=== PATIENT | male | born 1965 | race African-American/Black ===

== ENCOUNTER 2016-12-13 17:03 | Emergency (ER) | payer SELFPAY ==
[~2016-12-13] VITALS: Ht 175.3 cm; Wt 68.0 kg
[2016-12-13 17:03] VITALS: BP 166/98; PULSE 83; RESP 18; TEMP 98.7; O2SAT 100
[2016-12-13] MEDS ORDERED: PROPARACAINE HCL 0.5% OPHT SOLN 15 ML BTL RIGHT EYE ONE (17:15)
[2016-12-13] MEDS ORDERED: ERYTOIN10 RIGHT EYE (17:34)
[2016-12-13] MEDS ORDERED: IBUP800T23 PO (17:34)
--- NOTE | 2016-12-13 17:36 | PD ---
HPI Chief Complaint: Eye Problems/Injury Time Seen by Provider: 17:32 Travel History International Travel<30 days: No Contact w/Intl Traveler<30days: No Traveled to known affect area: No History of Present Illness HPI 51-year-old male presents emergency Department with complaint of right eye pain after something flew into his eye while doing yard work yesterday. Reports clear drainage. Reports blurry vision and photophobia. Denies fever, vomiting. Has been taking Tylenol for symptom management. Wearing sunglasses for symptom management. Has no other medical complaints. No known allergies. Symptoms are moderate in severity. No other modifying factors or associated signs and symptoms. PFSH Past Medical History Cerebrovascular Accident: No Diabetes: No Headaches: Yes Myocardial Infarction: No Social History Alcohol Use: No Tobacco Use: Yes (/2 PPD) Substance Use: No Allergies-Medications (Allergen,Severity, Reaction): Coded Allergies: No Known Allergies (Verified , 12/13/16) Reported Meds & Prescriptions Reported Meds & Active Scripts Active Erythromycin Opth Oint 5 Mg/Gm Oint 1 Applic RIGHT EYE QID 7 Days Ibuprofen 800 Mg Tab 800 Mg PO Q6HR PRN Review of Systems Except as stated in HPI: all other systems reviewed are Neg Physical Exam Narrative GENERAL: Well-nourished, well-developed black male patient, in no acute distress SKIN: Warm and dry. HEAD: Atraumatic. Normocephalic. EYES: Pupils equal and round at 3 mm with brisk reaction. PERRLA. EOMI. visual acuity 20/25 bilateral. Right lid eversion with no foreign body noted. Right eye with scleral erythema and without lid edema. No orbital tenderness, erythema or cellulitis. Right eye with photophobia. No consensual photophobia. No scleral icterus. Clear drainage. Anderson lamp exam reveals corneal abrasion at the 12 o'clock position above the iris. ENT: Mucosa pink and moist. Airway patent. NECK: Trachea midline. CARDIOVASCULAR: Regular rate. RESPIRATORY: No accessory muscle use. GASTROINTESTINAL: Flat. NEUROLOGICAL: Awake and alert. Oriented 3. No obvious cranial nerve deficits. Motor grossly within normal limits. Normal speech. PSYCHIATRIC: Appropriate mood and affect; insight and judgment normal. Data Data Last Documented VS Vital Signs Date Time Temp Pulse Resp B/P (MAP) Pulse Ox O2 Delivery O2 Flow Rate FiO2 12/13/16 17:39 10/4/17 17:03 98.7 83 18 100 Room Air Orders Orders Proparacaine 0.5% Opth Soln (Alcaine 0.5 (12/13/16 17:15) MDM Medical Decision Making Medical Screen Exam Complete: Yes Emergency Medical Condition: Yes Medical Record Reviewed: Yes Differential Diagnosis Eye contusion, corneal abrasion, corneal ulceration Narrative Course 51-year-old male physical exam consistent with a corneal abrasion of the right eye. Erythromycin and ibuprofen prescribed for home. Patient to follow up with ophthalmology in one to 2 days. Instructed patient to follow up with primary care provider. Patient verbalizes understanding and agreement with treatment plan. Patient is medically cleared and stable for discharge. Discussed reasons to return to the emergency department. Patient agrees with treatment plan. The patients vital signs are stable and the patient is stable for outpatient follow-up and treatment. Patient discharged home, stable and in no acute distress. Diagnosis Primary Impression: Corneal abrasion, right Qualified Codes: S05.01XA - Injury of conjunctiva and corneal abrasion without foreign body, right eye, initial encounter Referrals: [facility] Phys[facility] Patient Instructions: Corneal Abrasion (ED), General Instructions Departure Forms: Tests/Procedures, Work Release Enter return to work date: Dec 16, 2016 Additional Instructions: Ibuprofen or Tylenol as directed and as needed to reduce pain Sunglasses as needed for sensitivity to light Do not rub the eye Refrigerated eye drops as needed to reduce pain Cool compresses to the eye as needed to reduce pain Follow-up with ophthalmology 1-2 days Primary care provider Return to the emergency department immediately with worsening of symptoms Med/Other Pt SpecificInfo: Prescription(s) given Scripts Erythromycin Opth Oint (Erythromycin Opth Oint) 5 Mg/Gm Oint 1 APPLIC RIGHT EYE QID for Infection for 7 Days, #1 TUBE 0 Refills Prov: Belen Castellano 12/13/16 Ibuprofen (Ibuprofen) 800 Mg Tab 800 MG PO Q6HR Y for PAIN, #30 TAB 0 Refills Prov: Belen Castellano 12/13/16 Disposition: 01 DISCHARGE HOME Condition: Stable Belen Castellano Dec 13, 2016 17:36
== END 2016-12-13 17:45 | disposition home or self-care (01) ==
LOC: NEPK 17:03
DX: S05.01XA Injury of conjunctiva and corneal abrasion without foreign body, right eye, initial encounter (principal); W22.8XXA Striking against or struck by other objects, initial encounter; Y93.H2 Activity, gardening and landscaping; Y92.007 Garden or yard of unspecified non-institutional (private) residence as the place of occurrence of the external cause
CPT/HCPCS: 99283